=== PATIENT | female | born 1985 ===

== ENCOUNTER 2024-01-22 12:14 | Day surgery (SDC) | payer OTHER ==
[2024-01-16 09:54] LABS: HEMATOCRIT 39.8 % (36.0-45.00); HEMOGLOBIN 13.4 g/dL (12.0-15.00); MEAN CELL VOLUME 93.2 fL (80.00-100.00); MEAN CORPUSCULAR HEMOGLOBIN 31.2 pg (27.00-32.0); MEAN CORPUSCULAR HGB CONC 33.5 g/dl (32.0-36.0); PLATELET COUNT 276 K/uL (150-450); RED BLOOD COUNT 4.28 M/uL (4.00-6.00); RED CELL DISTRIBUTION WIDTH 14.7 % (11.5-14.5)
[2024-01-16 10:15] LABS: URINE APPEARANCE Clear; URINE BILIRRUBIN Negative (NEGATIVE); URINE BLOOD Negative; URINE COLOR Yellow; URINE GLUCOSE Negative (NEGATIVE); URINE LEUKOCYTE Negative; URINE NITRATE Negative; URINE PROTEIN Negative (NEGATIVE)
[2024-01-16 10:19] LABS: URINE BACTERIA 391.7 uL (0.0-1933); URINE EPITHELIAL CELLS 23.6 uL (0.0-38.8); URINE RBC 9.6 uL (0.0-20.8); URINE WBC 8.9 uL (0.0-23.2)
[2024-01-16 10:28] LABS: INR < 0.93; PROTHROMBIN TIME 9.8 SECONDS (9.0-11.5)
[~2024-01-22 12:14] MED LIST: CLONAZEPAM1 MG
[2024-01-22] MEDS ORDERED: POVIDONE-IODINE 118 ML BOTT TOP ONE (16:16)
[2024-01-22] MEDS ORDERED: RINGERS SOLUTION,LACTATED 1,000 ML IV SCH (22:15)
== END 2024-01-23 03:10 | disposition home or self-care (01) ==
LOC: CIR.AMB 12:14
PROVIDERS: ATTEND Obstetrics & Gynecology
DX: D06.9 Carcinoma in situ of cervix, unspecified (principal)

== ENCOUNTER 2025-02-15 09:30 | Inpatient (IN) | payer OTHER ==
[~2025-02-15] VITALS: Ht 157.5 cm; Wt 72.6 kg
[2025-02-15] MEDS ORDERED: PEPCID AC20 MG PO (11:17)
[2025-02-15 11:18] VITALS: BP 118/81
[2025-02-15 11:47] LABS: URINE APPEARANCE Clear; URINE BILIRRUBIN Negative (NEGATIVE); URINE BLOOD Negative; URINE COLOR Yellow; URINE GLUCOSE Negative (NEGATIVE); URINE KETONE Negative (NEGATIVE); URINE LEUKOCYTE Negative; URINE NITRATE Negative; URINE PROTEIN Negative (NEGATIVE); URINE UROBILINOGEN 0.2 E.U./dl
[2025-02-15 11:50] LABS: URINE BACTERIA 208.7 uL (0.0-1933); URINE EPITHELIAL CELLS 14.9 uL (0.0-38.8); URINE RBC 3.0 uL (0.0-20.8); URINE WBC 5.5 uL (0.0-23.2)
[2025-02-15 12:05] LABS: BASO % 1.0 % (0.1-1.2); EOS # 0.22 (0.04-0.54); EOS % 3.2 % (0.7-7.0); LYMPH # 2.44 (1.18-3.74); LYMPH % 35.6 % (19.3-53.1); MEAN PLATELET VOLUME 10.90 fl (9.4-12.4); MONO # 0.53 (0.24-0.82); MONO % 7.7 % (4.7-12.5); NEUT # 3.56 (1.56-6.13); NEUT % 51.9 % (34.0-71.1); RED CELL DISTRIBUTION WIDTH 13.8 % (11.6-14.4)
[2025-02-15 12:10] LABS: URINE CAST 0.00 uL (0.0-1.40)
[2025-02-15 12:48] LABS: ALT/SGPT 29.0 U/L (12-78); AST/SGOT 13.0 U/L (15-37); BILIRUBIN TOTAL 1.22 mg/dL (0.3-1.2); BUN CREA RATIO 25.0 (7.0-25.0); CREATININE SERUM 0.6 mg/dL (0.55-1.02); GFR 110.17; GLOBULINA 3.3 G/DL (2.4-3.5); GLUCOSE FASTING 84.0 mg/dL (65-100); OSMOLALITY SERUM 281.0 MOSM/KG (275-295)
[2025-02-16 12:42] LABS: INR 0.96
[2025-02-24] MEDS ORDERED: CEFOXITIN SODIUM 2,000 MG VIAL IV ONE (14:45)
[2025-02-24] MEDS ORDERED: POVIDONE-IODINE 118 ML BOTT TOP ONE (14:45)
[2025-02-24] MEDS ORDERED: MORPHINE SULFATE 4 MG/ML VIAL IV ONE (18:40)
[2025-02-24] MEDS ORDERED: KETOROLAC TROMETHAMINE 60 MG VIAL IM STA (19:07)
[2025-02-24] MEDS ORDERED: MORPHINE SULFATE 4 MG/ML VIAL IV PRN (19:15)
[2025-02-24] MEDS ORDERED: RINGERS SOLUTION,LACTATED 1,000 ML IV SCH (19:15)
[2025-02-24 22:41] VITALS: BP 137/83
[2025-02-24 23:24] LABS: BASO % 0.2 % (0.1-1.2); EOS # 0.00 (0.04-0.54); EOS % 0.0 % (0.7-7.0); LYMPH # 0.47 (1.18-3.74); LYMPH % 4.0 % (19.3-53.1); MEAN PLATELET VOLUME 10.80 fl (9.4-12.4); MONO # 0.72 (0.24-0.82); MONO % 6.2 % (4.7-12.5); NEUT # 10.44 (1.56-6.13); NEUT % 89.3 % (34.0-71.1); RED CELL DISTRIBUTION WIDTH 13.3 % (11.6-14.4)
[2025-02-25 04:30] VITALS: BP 111/67
[2025-02-25 08:00] VITALS: BP 130/68
[2025-02-25] MEDS ORDERED: ACETAMINOPHEN WITH CODEINE 1 UDTAB TABLET PO PRN (09:00)
[2025-02-25 16:35] VITALS: BP 111/70
[2025-02-26 01:47] VITALS: BP 135/79
[2025-02-26 08:00] VITALS: BP 124/76
[2025-02-26 16:00] VITALS: BP 130/80
[2025-02-27 00:20] VITALS: BP 106/64
[2025-02-27 08:00] VITALS: BP 118/78
[2025-02-27 16:24] VITALS: BP 148/79
== END 2025-02-27 18:28 | disposition home or self-care (01) | DRG 743 ==
LOC: SURH 02-24 09:00 → O/R 02-24 13:15 → OB/GYN 02-24 17:49
PROVIDERS: ADMIT Obstetrics & Gynecology; ATTEND Obstetrics & Gynecology
PROC: 0UT70ZZ Resection of Bilateral Fallopian Tubes, Open Approach (ICD-10-PCS; 2025-02-24)
PROC: 0UT90ZZ Resection of Uterus, Open Approach (ICD-10-PCS; principal; 2025-02-24 09:00)
DX: N93.9 Abnormal uterine and vaginal bleeding, unspecified (principal); Z90.710 Acquired absence of both cervix and uterus